=== PATIENT | female | born 1945 | race Two or more races ===

== ENCOUNTER 2019-11-19 11:39 | Outpatient (CLI) | payer OTHER | END 2019-11-19 11:43 | disposition home or self-care (01) | LOC: SONOGRAMA 11:39 | PROVIDERS: ATTEND Pathology Anatomic Pathology & Clinical Pathology | DX: E04.2 Nontoxic multinodular goiter (principal) ==

== ENCOUNTER 2020-02-22 08:09 | Day surgery (SDC) | payer OTHER ==
[~2020-02-22 08:09] MED LIST: CLONA PO; LEVOTHYROXINE25 MCG PO; LOSART PO; NORV PO; PEPCID PO; PRILOSE PO
== END 2020-02-22 15:55 | disposition home or self-care (01) ==
LOC: CIR.AMB 08:09
PROVIDERS: ATTEND Orthopaedic Surgery
DX: S52.571A Other intraarticular fracture of lower end of right radius, initial encounter for closed fracture (principal); M65.4 Radial styloid tenosynovitis [de Quervain]; M24.59 Contracture, other specified joint; Z20.828 Contact with and (suspected) exposure to other viral communicable diseases
CPT/HCPCS: 20902; 25609; C1776